=== PATIENT | female | born 1980 | race Caucasian/White ===

== ENCOUNTER 2022-09-09 17:02 | Emergency (ER) | payer SELFPAY ==
[~2022-09-09] VITALS: Ht 162.6 cm; Wt 54.0 kg
[2022-09-09 17:18] VITALS: BP 133/90
== END 2022-09-09 18:50 | disposition home or self-care (01) ==
LOC: ER 17:59
DX: S00.83XA Contusion of other part of head, initial encounter (principal); W01.0XXA Fall on same level from slipping, tripping and stumbling without subsequent striking against object, initial encounter; Y93.89 Activity, other specified; Y92.89 Other specified places as the place of occurrence of the external cause; Y99.8 Other external cause status
CPT/HCPCS: 99283